=== PATIENT | male | born 1985 | race Caucasian/White ===

== ENCOUNTER 2017-08-05 18:10 | Emergency (ER) | payer SELFPAY ==
[~2017-08-05] VITALS: Ht 175.3 cm; Wt 68.0 kg
[~2017-08-05 18:10] MED LIST: ALPR1TAB2 PO; AMPH20TA3 PO
[2017-08-05 18:24] VITALS: BP 128/75
--- NOTE | 2017-08-05 18:30 | NUR ---
L SIDED RIB PAIN X 3 DAYS, DENIES ANY TRAUMA. NAD NOTED, VSS, RESP EVEN AND UNLABORED, PT WAS PUT ON MONITOR, WAITING FOR MD CURIEL.
[2017-08-05] MEDS ORDERED: MORPHINE SULFATE INJ 4 MG/ML DISP.SYRIN ONE (18:48)
[2017-08-05] MEDS ORDERED: ONDANSETRON 4 MG TAB.RAPDIS ONE (18:48)
[2017-08-05] MEDS ORDERED: ONDANSETRON 4 MG TAB.RAPDIS SL ONE (19:00)
[2017-08-05] MEDS ORDERED: MORPHINE SULFATE INJ 2 MG/ML DISP.SYRIN IM ONE (19:00)
== END 2017-08-05 19:30 | disposition home or self-care (01) ==
LOC: ER 18:11
DX: S20.212A Contusion of left front wall of thorax, initial encounter (principal); F41.9 Anxiety disorder, unspecified; F41.0 Panic disorder [episodic paroxysmal anxiety]; F17.200 Nicotine dependence, unspecified, uncomplicated; X58.XXXA Exposure to other specified factors, initial encounter; Y93.89 Activity, other specified; Y92.89 Other specified places as the place of occurrence of the external cause; Y99.8 Other external cause status
CPT/HCPCS: 71100; 96372; 99284; A4606; J2270; Q0162; Z7610